=== PATIENT | female | born 1955 | race Caucasian/White ===

== ENCOUNTER 2022-11-23 09:04 | Day surgery (SDC) | payer MEDICARE ==
[2022-11-16 12:46] LABS: BASOPHILS # (AUTO) 0.1 X10'3 (0-0.2); BASOPHILS % (AUTO) 1.3 % (0-1); EOSINOPHILS # (AUTO) 0.2 X10'3 (0-0.9); EOSINOPHILS % (AUTO) 2.8 % (0-6); LYMPHOCYTES # (AUTO) 1.9 X10'3 (1.1-4.8); LYMPHOCYTES % (AUTO) 22.9 % (21-51); MEAN CORPUSCULAR HEMOGLOBIN 28.7 PG (27.0-31.0); MEAN CORPUSCULAR VOLUME 86.9 FL (78-98); MEAN PLATELET VOLUME 8.6 FL (7.4-10.4); MONOCYTES # (AUTO) 0.5 X10'3 (0-0.9); MONOCYTES % (AUTO) 6.5 % (2-12); NEUTROPHILS # (AUTO) 5.5 X10'3 (1.8-7.7); NEUTROPHILS % (AUTO) 66.5 % (42-75); PRE OP HEMATOCRIT 39.6 % (35.0-45.0); PRE OP HEMOGLOBIN 13.1 g/dL (12.0-16.0); PRE OP PLATELET COUNT 258 X10'3 (140-440); RED BLOOD COUNT 4.56 X10'6 (4.20-5.60); RED CELL DISTRIBUTION WIDTH 13.7 % (11.5-14.5)
[2022-11-16 12:51] LABS: PRE OP PROTIME 10.8 SECONDS (9.0-12.0)
[2022-11-16 12:55] LABS: ALBUMIN 3.4 G/DL (3.4-5.0); ALKALINE PHOSPHATASE 65 IU/L (46-116); BLOOD UREA NITROGEN 19 MG/DL (7-18); BUN/CREATININE RATIO 26.4 (6.6-38.0); CALCIUM 8.5 MG/DL (8.5-10.1); CHLORIDE 106 MMOL/L (99-107); CREATININE 0.72 MG/DL (0.40-0.90); PRE OP ALT 20 U/L (30-65); PRE OP ANION GAP 7 (8-16); PRE OP AST 23 U/L (10-37); PRE OP BILIRUB, TOTAL 0.3 MG/DL (0.0-1.0); PRE OP GLUCOSE 87 MG/DL (70-104); PRE OP POTASSIUM 3.9 MMOL/L (3.4-5.1); PRE OP SODIUM 140 MMOL/L (135-145); TOTAL PROTEIN 6.7 G/DL (6.4-8.2); eGFR 81 ML/MIN
[2022-11-23] VITALS (9 sets, daily range): BP systolic 122–159; BP diastolic 72–98
[~2022-11-23] VITALS: Ht 157.5 cm; Wt 67.2 kg
[~2022-11-23 09:04] MED LIST: ADV50100 INH; ALBU18HF2 INH; BETA15CR4 TOP; BIOT10004 PO; BUPIVAcaine 0.25% w/Epi /PF 30ml vial ONE; CHOL20004 PO; SERT-433 PO; clindamycin-Cleocin 900mg/D5W 50 ML IV ONE; famotidine 20mg tablet PO ONE; methylene blue (5mg/ml) 50mg/10ml ampul IV ONE; ringers solution, lacted 1,000 ML IV SCH
--- NOTE | 2022-11-23 10:45 | NUR ---
PREPARED PT FOR SURGERY. PT STATES SHE IS A JEHOVAH WITNESS AND DOES NOT WANT TO RECEIVE ANY BLOOD OR BLOOD PRODUCTS. BLOOD REFUSAL IN CHART WITNESSED. IV STARTED IN RIGHT HAND WITHOUT DIFFICULTY. PT AND EDUCATED ON USE ON INCENTIVE SPIROMETRY. ALLERGY BRACELET APPLIED, AND NO BLOOD PRODUCT BRACELET APPLIED. DUE TO DRUG ALLERGIES ANCEF ORDER WAS CHANGED TO CLINDAMYCIN. PHYSICIAN AT BEDSIDE, H & P INTERVAL NOTE COMPLETED, SIDE MARKED.
[2022-11-23] MEDS ORDERED: fentaNYL/PF 50MCG/1 ML 2ML syringe IV PRN ×2 (10:55)
[2022-11-23] MEDS ORDERED: morphine 2 MG/ML inj. syringe IV PRN (10:55)
[2022-11-23] MEDS ORDERED: ringers solution, lacted 1,000 ML IV SCH (10:55)
[2022-11-23] MEDS ORDERED: hydrALAZINE 20mg/ml inj. IV PRN (10:55)
[2022-11-23] MEDS ORDERED: labetalol 20mg/4ml (5mg/ml) syringe IV PRN (10:55)
[2022-11-23] MEDS ORDERED: morphine 4 MG/ML inj SYRINge IV PRN (10:55)
[2022-11-23] MEDS ORDERED: ondansetron/PF 4mg/2ml inj IV PRN (10:55)
[2022-11-23] MEDS ORDERED: FENTANYL CITRATE/PF 50 MCG/1 ML VIAL ONE ×2 (12:36→13:46)
[2022-11-23] MEDS ORDERED: midazolam 1 mg/ML 2ml injection ONE (12:41)
[2022-11-23] MEDS ORDERED: ondansetron/PF 4mg/2ml inj ONE (12:42)
[2022-11-23] MEDS ORDERED: dexamethasone sod phosphate 4mg/ml inj. ONE (12:42)
[2022-11-23] MEDS ORDERED: LIDOcaine 1%/PF 5ML 10 MG/ML VIAL ONE ×2 (12:42)
[2022-11-23] MEDS ORDERED: ePHEDrine 50MG/ML INJ. ONE (13:05)
--- NOTE | 2022-11-23 15:06 | NUR ---
Received from OR via [facility], accompanied by Anesthesiologist DR WASHINGTON and report given by Anesthesiolgist. PT PRESENTS WITH PIV 20G LEFT HAND, LEFT BREAST DRESSING CDI WITH BREAST BIDER IN PLACE. VSS. Addendum: 11/23/22 at 1514 by Kaitlyn Coyle RN, RN Amended: Links added.
[2022-11-23] MEDS ORDERED: HYDROcodone/acetaminophen 5mg/325mg tablet PO ONE (15:30)
--- NOTE | 2022-11-23 16:19 | NUR ---
PATIENT A&OX4, DENIES PAIN, V/S WNL, SCD OFF, 20G TO LUE D/C, RIGHT WRIST DRESSING CDI W/ SLING. ICE AND ELEVATED RUE. I HAVE REVIEWED D/C INSTRUCTIONS WITH PATIENT INSTRUCTIONS WITH PATIENT AND THEY HAVE VERBALIZED UNDERSTANDING. PATIENT D/C HOME WITH ALL BELONGINGS AND FAMILY TRANSPORTED PATIENT HOME. Addendum: 11/23/22 at 1628 by Kaitlyn Coyle RN, RN Amended: Links added.
== END 2022-11-23 16:19 | disposition home or self-care (01) ==
LOC: PAS 09:04
PROVIDERS: ATTEND Surgery
DX: C50.912 Malignant neoplasm of unspecified site of left female breast (principal); Z79.899 Other long term (current) drug therapy; Z88.0 Allergy status to penicillin; Z88.2 Allergy status to sulfonamides; F41.9 Anxiety disorder, unspecified; M19.90 Unspecified osteoarthritis, unspecified site; Z98.890 Other specified postprocedural states; Z79.01 Long term (current) use of anticoagulants
CPT/HCPCS: 19301; 36415; 38525; 38900; 80053; 82948; 85025; 85610; 85730; 93005; J1100; J2250; J2405; J3010; J3490; J7030; J7120; Q9968; S0020; Z7506; Z7508; Z7512; A4215; A4618; A6258; A6449; A7000